=== PATIENT | male | born 1965 | race Hispanic/Latino ===

== ENCOUNTER 2020-02-25 10:38 | Observation (INO) | payer BC ==
[~2020-02-25 10:38] MED LIST: ACETAMINOPHEN 325 MG TAB PO PRN; MEPERIDINE 25 MG/1 ML INJ IV PRN; ONDANSETRON 4 MG/2 ML INJ IV PRN
[2020-02-25] MEDS ORDERED: SODIUM CHLORIDE 0.45% 1000 ML 1,000 ML IV SCH (11:00)
[2020-02-25] MEDS ORDERED: ceFAZolin/STERILE WATER 2 GM/20 ML SYRINGE IV NR (11:04)
[2020-02-25] MEDS ORDERED: fentaNYL 100 MCG/2 ML INJ IV PRN (11:42)
[2020-02-25] MEDS ORDERED: LACTATED RINGERS 1,000 ML ONE ×2 (11:54→13:04)
--- NOTE | 2020-02-25 11:54 | Anesthesia Consultation ---
Anesthesia Consult and Med Hx Date of service: 02/25/20 - Airway Anesthetic Teeth Evaluation: Good ROM Head & Neck: Adequate Mental/Hyoid Distance: Adequate Mallampati Class: Class II Intubation Access Assessment: Probably Good - Pulmonary Exam CTA: Yes - Cardiac Exam Cardiac Exam: RRR - Pre-Operative Health Status ASA Pre-Surgery Classification: ASA2 Proposed Anesthetic Plan: General - Pulmonary Hx Smoking: No Hx Respiratory Symptoms: No Hx Sleep Apnea: No (MICHELLE PRE SCREEN HIGH RISK) - Cardiovascular System Hx Hypertension: Yes Hx Heart Attack/AMI: No Hx Percutaneous Transluminal Coronary Angioplasty (PTCA): No Hx Cardia Arrhythmia: No - Central Nervous System CVA: No - Gastrointestinal Hx Gastroesophageal Reflux Disease: No - Endocrine Hx Renal Disease: No Hx Liver Disease: No Hx Non-Insulin Dependent Diabetes: Yes Hx Thyroid Disease: No - Other Systems Hx Obesity: Yes (BMI 32) - Additional Comments Anesthesia Medical History Comments: Hx RA, not currently on meds. No hx anesth etic complications.
--- NOTE | 2020-02-25 11:55 | Anesthesia Day of Surgery ---
Anesthesia Day of Surgery - Day of Surgery Patient Examined: Yes Patient H&P Reviewed: Yes Patient is NPO: Yes
[2020-02-25] MEDS ORDERED: fentaNYL 100 MCG/2 ML INJ ONE (12:00)
[2020-02-25] MEDS ORDERED: LACTATED RINGERS 1,000 ML IV SCH (12:00)
[2020-02-25] MEDS ORDERED: MIDAZOLAM 2 MG/2 ML INJ IV NR (12:00)
[2020-02-25] MEDS ORDERED: propofoL 200 MG/20 ML VIAL IV ONE (12:01)
[2020-02-25] MEDS ORDERED: WATER FOR IRRIG STERILE 2000 ML IR ONE (12:43)
[2020-02-25] MEDS ORDERED: WATER FOR IRRIG STERILE 1,500 ML BOTTLE IR ONE (12:43)
[2020-02-25] MEDS ORDERED: LIDOCAINE MPF (2%) 20 MG/1 ML VIAL 5 ML ONE (12:51)
[2020-02-25] MEDS ORDERED: ONDANSETRON 4 MG/2 ML INJ ONE (12:51)
--- NOTE | 2020-02-25 12:54 | Short Stay Summary ---
Short Stay Documentation Date of service: 02/25/20 - History H&P: obtained from office - Allergies and Medications Current Medications: Allergies morphine Allergy (Verified 02/22/20 17:00) Vomiting Home Medications Medication Instructions Recorded Confirmed Last Taken Type HYDROcodone/APAP 5-325 [[place] 1 each PO Q4HR PRN 02/22/20 02/25/20 02/24/20 History 5/325] Losartan [Cozaar] 12.5 mg PO QDAY 02/22/20 02/25/20 02/24/20 History Sulfamethoxazole/Trimethoprim 1 each PO DAILY 02/22/20 02/25/20 02/24/20 History [Bactrim DS TAB] Tamsulosin [Flomax] 0.4 mg PO QDAY 02/22/20 02/25/20 1 Week Ago History ~02/18/20 glipiZIDE [Glucotrol] 2.5 mg PO BID 02/22/20 02/25/20 02/23/20 History traMADoL [Ultram] 50 mg PO Q6HR PRN 02/22/20 02/25/20 1 Week Ago History ~02/18/20 Active Medications Acetaminophen (Tylenol) 650 mg PO Q4H PRN PRN Reason: Pain MILD(1-3)/Fever >100.5/CALVO Cefazolin Sodium (Ancef/Sterile Water 2 Gm/20 Ml) 2 gm IV PREOP NR Stop: 02/25/20 20:00 Fentanyl (Sublimaze) 50 mcg IV Q5MIN PRN PRN Reason: Pain , Severe (7-10) Sodium Chloride (Nacl 0.45% 1000 Ml) 1,000 mls @ 125 mls/hr IV DIRECT MARIE Lactated Ringer's (Lactated Ringers) 1,000 mls @ 100 mls/hr IV DIRECT MARIE Last Admin: 02/25/20 11:55 Dose: 100 mls/hr Documented by: Meperidine HCl (Demerol) 25 mg IV ONCE PRN PRN Reason: Shivering Midazolam HCl (Versed) 2 mg IV PREOP NR Stop: 02/25/20 23:59 Last Admin: 02/25/20 11:55 Dose: 2 mg Documented by: Ondansetron HCl (Zofran) 4 mg IV Q8H PRN PRN Reason: Nausea And Vomiting Sodium Chloride (Sodium Chloride Flush Syringe 10 Ml) 10 ml IV BID MARIE Sodium Chloride (Sodium Chloride Flush Syringe 10 Ml) 10 ml IV PRN PRN PRN Reason: LINE FLUSH - Brief post op/procedure progress note Date of procedure: 02/25/20 Pre-op diagnosis: rt ureteral stone Post-op diagnosis: other (impacted) Procedure: cysto, rpg, rt ureteroscopy, stent Anesthesia: GETA Surgeon: IRENA WHEELER Pathology: none Condition: stable - Hospital course Hospital course: tala tejadam kerri, post op info on chart - Disposition Condition at discharge: Stable Disposition: DC-01 TO HOME OR SELFCARE Short Stay Discharge Plan Follow up with: PRIMARY CARE, [Primary Care Provider] - 7 Days
--- NOTE | 2020-02-25 14:14 | Post Anesthesia Evaluation ---
- Post Anesthesia Evaluation Patient Participated: Yes Airway Patent: Yes Stable Respiratory Function: Yes Nausea/Vomiting: No Temp > 96.8F: Yes Pain Manageable: Yes Adequeate Hydration: Yes Anesthesia Complications: No
--- NOTE | 2020-02-25 15:19 | Fluoroscopy Report ---
INTRAOPERATIVE FLUOROSCOPY: RETROGRADE UROGRAPHY INDICATION: RT URETERAL STONE. TECHNIQUE: Intraoperative spot images were obtained during the procedure. FINDINGS: There is unremarkable opacification of the left renal collecting system and ureter. Questionable cont rast extravasation is noted along the mid right ureter. A subsequently placed right ureteral stent is in good position. Please see the procedural report for further details. Fluoroscopy Time: 1 minute, 14 seconds. Fluoroscopy Images: 9. Signer Name: Lee Meneses MD Signed: 02/25/2020 3:15 PM Workstation Name: [id number]
[2020-02-25 15:44] VITALS: BP 147/87
--- NOTE | 2020-02-25 18:02 | Operative Report ---
PREOPERATIVE DIAGNOSIS: Right proximal ureteral stone, 8 mm. POSTOPERATIVE DIAGNOSIS: Right proximal ureteral stone, 8 mm. Impacted ureteral stone. PROCEDURE: Cystoscopy, bilateral retrograde pyelograms, rigid ureteroscopy, a double-J stent placement (6-Stateless 26 cm with a short internal string). SURGEON: George Hernandez MD ANESTHESIA: General. ESTIMATED BLOOD LOSS: Minimal. FLUIDS: Crystalloid. COMPLICATIONS: No complications. INDICATIONS: This patient is a 54-year-old gentleman seen in the office for right flank pain. CT of abdomen and pelvis revealed 8 mm stone. He was initially set up for cysto stent lithotripsy yesterday; however, malfunction of the lithotripsy unit delayed treatment as well as surgical emergencies In the operating room with limited staff. The hospital then would not let us do any procedures. He subsequently was rescheduled for today. The patient understood that the lithotripsy unit was not available now. DESCRIPTION OF PROCEDURE: The patient was taken to the operative suite, placed in a supine position, after adequate general anesthesia, placed in a dorsal lithotomy position, prepped and draped in a sterile fashion. Pancystourethroscopy was performed with a 22-Stateless Storz cystoscope, no urethral abnormalities. Prostate minimally obstructing his bladder. No tumors or stones. Both ureteral orifices in normal position. Bilateral retrograde pyelograms were obtained with an 8-Stateless Lino catheter, 8 mL of contrast. No filling defects or obstruction on the left. Right side, obvious filling defect in the proximal ureter. Two 0.035 Glidewires were placed. Rigid ureteroscopy in the close proximity of the stone; however, significant edema was present. Using a 3-Stateless Dayanara basket under fluoroscopic guidance to try to advance the basket above the stone and I made several passes to engage the stone unsuccessfully. At this point, I felt it was prudent to place a stent, let the edema subside and would treat with lithotripsy. A 6-Stateless 26 cm double-J stent with a short internal string was left indwelling. Bladder was drained. Rectal exam was benign. He was extubated and taken to recovery room. We will set him up for lithotripsy at a later date. JOB# [id number] [facility]
== END 2020-02-25 22:51 | disposition home or self-care (01) ==
LOC: OR 10:38 → 3A 10:39
PROVIDERS: ADMIT Urology; ATTEND Urology
DX: N20.1 Calculus of ureter (principal); N20.0 Calculus of kidney; E11.9 Type 2 diabetes mellitus without complications; G47.33 Obstructive sleep apnea (adult) (pediatric); E66.9 Obesity, unspecified; Z68.32 Body mass index [BMI] 32.0-32.9, adult; Z79.4 Long term (current) use of insulin
CPT/HCPCS: 52005; 74420; 82962; A4217; G0378; J0690; J2175; J2250; J2405; J2704; J3010; J7120; Q9967

== ENCOUNTER 2020-04-17 07:17 | Day surgery (SDC) | payer BC ==
[~2020-04-17 07:17] MED LIST changes: -ACETAMINOPHEN 325 MG TAB PO PRN; +LACTATED RINGERS 1,000 ML IV SCH; -MEPERIDINE 25 MG/1 ML INJ IV PRN; +MIDAZOLAM 2 MG/2 ML INJ IV NR; -ONDANSETRON 4 MG/2 ML INJ IV PRN; +ceFAZolin/Water 2 GM/20 ML 2 GM/20 ML SYRINGE IV NR
[2020-04-17] MEDS ORDERED: ONDANSETRON 4 MG/2 ML INJ IV PRN (08:06)
[2020-04-17] MEDS ORDERED: fentaNYL 100 MCG/2 ML INJ IV PRN (08:06)
[2020-04-17] MEDS ORDERED: MORPHINE 4 MG/1 ML INJ IV PRN (08:06)
--- NOTE | 2020-04-17 08:06 | Anesthesia Consultation ---
Anesthesia Consult and Med Hx Date of service: 04/17/20 - Airway Anesthetic Teeth Evaluation: Good ROM Head & Neck: Adequate Mental/Hyoid Distance: Adequate Mallampati Class: Class III Intubation Access Assessment: Possibly Difficult - Pulmonary Exam CTA: Yes - Cardiac Exam Cardiac Exam: RRR - Pre-Operative Health Status ASA Pre-Surgery Classification: ASA3 Proposed Anesthetic Plan: General - Pulmonary Hx Smoking: No Hx Respiratory Symptoms: No Hx Sleep Apnea: No (MICHELLE PRE SCREEN HIGH RISK) - Cardiovascular System Hx Hypertension: Yes Hx Heart Attack/AMI: No Hx Percutaneous Transluminal Coronary Angioplasty (PTCA): No Hx Cardia Arrhythmia: No - Central Nervous System CVA: No - Gastrointestinal Hx Gastroesophageal Reflux Disease: No - Endocrine Hx Renal Disease: No Hx Liver Disease: No Hx Non-Insulin Dependent Diabetes: Yes Hx Thyroid Disease: No - Other Systems Hx Obesity: Yes (BMI 32) - Additional Comments Anesthesia Medical History Comments: Hx RA not currently on treatment and no recent steroids. No hx anesthetic complications.
--- NOTE | 2020-04-17 08:06 | Anesthesia Day of Surgery ---
Anesthesia Day of Surgery - Day of Surgery Patient Examined: Yes Patient H&P Reviewed: Yes Patient is NPO: Yes
[2020-04-17] MEDS ORDERED: INSULIN REGULAR, HUMAN 100 UNIT/ML 3ML VIAL IV NR (08:36)
[2020-04-17] MEDS ORDERED: INSULIN REGULAR, HUMAN 100 UNITS/1 ML ONE (08:42)
[2020-04-17] MEDS ORDERED: ONDANSETRON 4 MG/2 ML INJ ONE (09:48)
[2020-04-17] MEDS ORDERED: LIDOCAINE MPF (2%) 20 MG/1 ML VIAL 5 ML ONE (09:48)
[2020-04-17] MEDS ORDERED: GLYCOPYRROLATE 0.4 MG/2 ML INJ ONE (09:48)
[2020-04-17] MEDS ORDERED: PHENYLEPHRINE/NS 1,000 MCG/10 ML SYRINGE (OR USE) IV ONE (09:48)
[2020-04-17] MEDS ORDERED: dexAMETHasone 20 MG/5 ML VIAL ONE (09:48)
[2020-04-17] MEDS ORDERED: propofoL 200 MG/20 ML VIAL IV ONE (09:49)
[2020-04-17] MEDS ORDERED: fentaNYL 100 MCG/2 ML INJ ONE (09:49)
--- NOTE | 2020-04-17 10:31 | Short Stay Summary ---
Short Stay Documentation Date of service: 04/17/20 - History H&P: obtained from office - Allergies and Medications Current Medications: Allergies morphine Allergy (Verified 02/22/20 17:00) Vomiting Home Medications Medication Instructions Recorded Confirmed Last Taken Type HYDROcodone/APAP 5-325 [[place] 1 each PO Q4HR PRN 02/22/20 04/17/20 03/18/20 08:00 History 5/325] Losartan [Cozaar] 12.5 mg PO QDAY 02/22/20 04/17/20 04/16/20 18:00 History Tamsulosin [Flomax] 0.4 mg PO QDAY 02/22/20 04/17/20 03/18/20 08:00 History glipiZIDE [Glucotrol] 2.5 mg PO BID 02/22/20 04/17/20 04/16/20 18:00 History traMADoL [Ultram] 50 mg PO Q6HR PRN 02/22/20 04/17/20 03/18/20 08:00 History Active Medications Fentanyl (Sublimaze) 50 mcg IV Q5MIN PRN PRN Reason: Pain , Severe (7-10) Stop: 04/17/20 23:00 Cefazolin Sodium (Ancef/Sterile Water 2 Gm/20 Ml) 2 gm in 20 mls @ 80 mls/hr IV PREOP NR; Protocol Stop: 04/17/20 23:59 Lactated Ringer's (Lactated Ringers) 1,000 mls @ 100 mls/hr IV DIRECT MARIE Stop: 04/17/20 23:59 Last Admin: 04/17/20 08:40 Dose: 100 mls/hr Documented by: Midazolam HCl (Versed) 2 mg IV PREOP NR Stop: 04/17/20 23:59 Last Admin: 04/17/20 09:35 Dose: 2 mg Documented by: Ondansetron HCl (Zofran) 4 mg IV ONCE PRN PRN Reason: Nausea And Vomiting Stop: 04/17/20 16:00 - Brief post op/procedure progress note Date of procedure: 04/17/20 Pre-op diagnosis: rt hydronephrosis (s/p stent eswl) Post-op diagnosis: same Procedure: cysto, rpg, remove stent---right Anesthesia: GETA Surgeon: IRENA WHEELER Estimated blood loss: none Pathology: none Condition: stable - Hospital course Hospital course: roro & jesus on chart - Disposition Condition at discharge: Stable Disposition: DC-01 TO HOME OR SELFCARE Short Stay Discharge Plan Follow up with: PRIMARY CARE, [Primary Care Provider] - 7 Days
--- NOTE | 2020-04-17 10:45 | Operative Report ---
PREOPERATIVE DIAGNOSES: Right hydronephrosis, status post stent. Extracorporal shock wave lithotripsy. POSTOPERATIVE DIAGNOSES: Right hydronephrosis, status post stent. Extracorporal shock wave lithotripsy. PROCEDURE: Cystoscopy, right retrograde pyelogram, stent removal. SURGEON: George Hernandez MD ANESTHESIA: General. ESTIMATED BLOOD LOSS: Minimal. FLUIDS: Crystalloid. COMPLICATIONS: No complications. INDICATIONS: This patient is a 54-year-old gentleman, initially presented with a 9 mm right proximal ureteral stone and significant colic, underwent cysto, stent, lithotripsy by Dr. Ramirez in our group. He presents now for a reevaluation and stent removal. KUB suggests a fragment in the mid ureter. Risks, benefits and complications were explained. DESCRIPTION OF PROCEDURE: The patient was taken to the operative suite, placed in a supine position. After adequate general anesthesia, placed in a dorsal lithotomy position, prepped and draped in a sterile fashion. Pancystourethroscopy was performed with a 22-[place] Storz cystoscope, no urethral abnormalities. He had some mild stenosis of the proximal urethra. His prostate minimally obstructing his bladder. No tumors or stones. Both ureteral orifices in normal position. Right stent in good position. Blending Plant Operator film again suggests a stone in the mid ureter or it is a part of the transverse process of the spine. Stent was removed. Retrograde pyelogram was obtained. No hydronephrosis, no filling defect could be appreciated at this point. It was elected to leave the stent out. Rectal exam was benign. He was extubated and taken to the recovery room. [facility] [place] JOB# [id number] [facility]
[2020-04-17 11:53] VITALS: BP 139/85
--- NOTE | 2020-04-17 15:45 | Fluoroscopy Report ---
INTRAOPERATIVE FLUOROSCOPY INDICATION / CLINICAL INFORMATION: HYDRONEPHROSIS. TECHNIQUE: Intraoperative spot images were obtained during the procedure. FINDINGS: Intraoperative fluoroscopy images for retrograde urography. See operative/procedure note by performing physician for full details. Fluoroscopy Time: 17 seconds. Fluoroscopy Images: 7. Signer Name: Tate Mejia MD Signed: 04/17/2020 3:40 PM Workstation Name: [id number]
== END 2020-04-17 07:18 | disposition home or self-care (01) ==
LOC: OR 07:17
PROVIDERS: ATTEND Urology
DX: N13.30 Unspecified hydronephrosis (principal); N35.819 Other urethral stricture, male, unspecified site; I10 Essential (primary) hypertension; E66.9 Obesity, unspecified; M19.90 Unspecified osteoarthritis, unspecified site; E11.9 Type 2 diabetes mellitus without complications; Z79.899 Other long term (current) drug therapy; Z88.5 Allergy status to narcotic agent; Z98.49 Cataract extraction status, unspecified eye; Z98.890 Other specified postprocedural states; Z68.32 Body mass index [BMI] 32.0-32.9, adult
CPT/HCPCS: 52310; 74420; 82962; J0690; J1100; J2250; J2370; J2405; J2704; J3010; J7120; Q9967; J1815